=== PATIENT | female | born 1985 | race Caucasian/White ===

== ENCOUNTER → 2021-05-01 | Outpatient (CLI) | payer OTHER ==
[~2021-05-01] MED LIST: APAP W/CODEINE1 TA2 PO; CARAFATE 11 GM/10 M1 PO; CYMBALTA20 MG PO; KEFLEX125 MG/5 M PO; OMEPRAZOLE40 MG PO
== END ==
LOC: ULTRA 08:57
PROVIDERS: ATTEND Nurse Practitioner
DX: D18.09 Hemangioma of other sites (principal)